=== PATIENT | female | born 1970 | race Caucasian/White ===

== ENCOUNTER 2024-03-09 10:38 | Emergency (ER) | payer OTHER, SELFPAY ==
--- NOTE | ~2024-03-09 | CT_ITS ---
EXAMINATION: CT brain and CT cervical spine without contrast . CLINICAL INDICATION: Fall with head strike. COMPARISON: CT cervical spine 09/20/2021. TECHNIQUE: 5 mm thin thin axial and reformatted 2 mm thin sagittal and coronal images of brain were obtained without contrast. Subsequently axial 3 mm thin and reformatted 2 mm thin sagittal and coronal images of cervical spine were obtained without contrast. DLP 1051. DOSE LOWERING TECHNIQUES: This CT examination was performed using dose optimization techniques as appropriate, variously including the following: - Automated exposure control - Adjustment of mA and/or kV according to patient size (this includes techniques or standardized protocols for targeted exams where dose is matched to indication/reason for exam; i.e. extremities or head) - Use of iterative reconstruction technique FINDINGS: BRAIN: There is no acute intra-axial, extra-axial bleed, masses or midline shift. There is no acute infarction in evolution. There is no edema. The montoya to white matter differentiation is maintained normal. The lateral ventricles are symmetrical in size and configuration without enlargement. Bone windows reveal no calvarial abnormality. There is no scalp soft tissue abnormality. There is mucoperiosteal thickening right sphenoid sinus. Rest of the paranasal sinuses are clear. CERVICAL SPINE: There is mild straightening of cervical lordosis. The vertebral heights and alignment is normal. There is mild loss of C5-6 disc height with ventral and posterior spondylosis. Rest of the disc heights are normal. There is no visible acute fracture, dislocation or lytic process seen. The prevertebral and paravertebral soft tissues are normal. CT/CT cervical spine wo IV con IMPRESSION: No acute intracranial process seen. Mild degenerative disc changes with ventral and posterior spondylosis C5-6 disc level. Electronically signed by: Mark Squires MD 03/09/2024 01:51 PM EST
--- NOTE | ~2024-03-09 | XR_ITS ---
CLINICAL HISTORY: fall, white count ?pneumonia 2 view chest x-ray. Comparison: None Findings: Lungs are clear without acute infiltrates. No pneumothorax. Heart size normal. No acute bony abnormalities. Impression: No acute processes This document has been electronically signed by: Sim Jeffries MD on 03/09/2024 18:26:09
[2024-03-09 10:42] VITALS: BP 109/75; PULSE 80; RESP 16; TEMP 36.6; O2SAT 96; BMI 34.3
--- NOTE | 2024-03-09 11:00 | ECG_ITS ---
Test Reason : CP Blood Pressure : / mmHG Vent. Rate : 083 BPM Atrial Rate : 083 BPM P-R Int : 128 ms QRS Dur : 072 ms QT Int : 360 ms P-R-T Axes : 034 045 032 degrees QTc Int : 423 ms Normal sinus rhythm Normal ECG No previous ECGs available Referred By: Generic ED Physician Electronically Signed By:SERA BARRETT MD
[2024-03-09 11:49] LABS: Basophils Percent Auto 0.2 % (0-2); Eosinophils Percent Auto 0.3 % (0-4); Hematocrit 43.4 % (37.0-47.0); Hemoglobin 14.6 g/dl (12.0-16.0); Imm Gran Abs Auto 0.06 X10*3/uL (0.00-0.03); Imm Gran Pct Auto 0.4 % (0.0-0.4); Lymphocytes Absolute Auto 1.3 X10*3/uL (1.2-4.9); Lymphocytes Percent Auto 9.5 % (20-40); MANUAL DIFF FLAG NO; Mean Corpuscular HGB Conc 33.6 g/dl (31.0-35.0); Mean Corpuscular Hemoglobin 29.6 pg (27.0-33.0); Monocytes Absolute Auto 0.5 X10*3/uL (0.1-1.2); Monocytes Percent Auto 3.4 % (2-11); Neutrophils Absolute Auto 11.5 x10*3/uL (2.0-8.3); Neutrophils Percent Auto 86.2 % (45-73); Platelet Count 365 X10*3/uL (160-400); Red Blood Count 4.93 X10*6/uL (4.20-5.50); Red Cell Distribution Width 12.6 % (11.0-16.0); White Blood Count 13.4 X10*3/uL (4.8-10.8)
[2024-03-09 11:55] LABS: Prothrombin Time 11.8 SEC (10.9-12.4)
[2024-03-09 12:10] LABS: Alanine Aminotransferase 46 U/L (0-31); Albumin Level 4.7 g/dL (3.5-5.0); Alkaline Phosphatase 101 U/L (39-117); Anion Gap 10 (12-20); Aspartate Amino Transferase 33 U/L (5-31); Bilirubin Total 0.6 mg/dL (0.0-1.0); Blood Urea Nitrogen 15 mg/dL (9-16); Calcium 9.8 mg/dL (8.4-10.2); Carbon Dioxide 26 mmol/L (22-29); Chloride 106 mmol/L (96-108); Creatinine Clr Calc Pharmacy 70.5; Estimated Glomerular Filt Rate 56; Glucose Random 151 mg/dL (60-115); Potassium 4.2 mmol/L (3.3-5.1); Sodium 138 mmol/L (135-145); Total Protein 7.7 g/dL (6.5-8.0); Troponin-I High Sensitivity < 2.7 ng/L (<3.5-17.0)
[2024-03-09 12:12] LABS: HCG Quantitative < 2 mIU/mL
[2024-03-09 12:27] LABS: Influenza A PCR NEGATIVE (Negative); Influenza B PCR NEGATIVE (Negative); Resp Syncy Virus RNA Qual PCR NEGATIVE (Negative); SARS COV2 PCR INHOUSE NEGATIVE (Negative)
--- OUTSIDE RECORDS SUMMARY | 2024-03-09 15:22 | XMS_ITS | Continuity of Care Document ---
Author Organization [facility] Address [address] [place] [address] Care Team Providers Care Lab Manager Name Role Phone Ihsan Andrey HAGAN Unavailable Unavailable Procedures Procedure Date Therapeutic Proc 15 Min Therap Exerc Sep Therap Proc(S)-Group Therapeutic Proc 15 Min Therap Exerc Sep Therapeutic Proced 1 Or More Neuromuscul ar Reeduca Modality To One Or More Areas;Hot Or Col d Packs Manual Therapy Techniques One Or More Nina davidson Ea Therapeutic Proc 15 Min Therap Exerc Aug Therapeutic Proc 15 Min Therap Exerc Aug Therapeutic Proced 1 Or More Neuromuscul ar Reeduca Modality To One Or More Areas;Hot Or Col d Packs Therapeutic Proc 15 Min Therap Exerc Aug Therapeutic Proced 1 Or More Neuromuscul ar Reeduca Modality To One Or More Areas;Hot Or Col d Packs Therapeutic Proc 15 Min Therap Exerc Aug Therapeutic Proced 1 Or More Neuromuscul ar Reeduca Appli Of Modality, 1 Or More Ultrasound Therapeutic Proc 15 Min Therap Exerc Aug Therapeutic Proced 1 Or More Neuromuscul ar Reeduca Manual Therapy Techniques One Or More Nina davidson Ea Modality To One Or More Areas;Hot Or Col d Packs Therapeutic Proc 15 Min Therap Exerc Aug Therapeutic Proced 1 Or More Neuromuscul ar Reeduca Appli Of Modality, 1 Or More Ultrasound Modality To One Or More Areas;Hot Or Col d Packs Physical Therapy Evaluation Therapeutic Proc 15 Min Therap Exerc July Modality To One Or More Areas;Hot Or Col d Packs Therapeutic Proc 15 Min Therap Exerc July Therapeutic Proced 1 Or More Neuromuscul ar Reeduca Modality To One Or More Areas;Hot Or Col d Packs Manual Therapy Techniques One Or More Nina davidson Ea Physical Therapy Evaluation Therapeutic Proc 15 Min Therap Exerc July Application Of A Modality, Traction, Mec hanical Therapeutic Proc 15 Min Therap Exerc July Modality To One Or More Areas;Hot Or Col d Packs Therapeutic Proc 15 Min Therap Exerc Jun Therapeutic Proced 1 Or More Neuromuscul ar Reeduca Appli Of Modality, 1 Or More Ultrasound Physical Therapy Evaluation Therapeutic Proc 15 Min Therap Exerc Jun Manual Therapy Techniques One Or More Nina davidson Ea Advance Directives Directive Yes / No Effective Date File Name No Information Encounters Encounter Description Practice Location Reason(s) For Visit Diagnoses Date Provider Providers Copied on Encounter [facility] [id number], [id number], [facility] 1800 LMO neck (chief complaint) back pain (chief complaint) knee pain (chief complaint) No Information 4 Ihsan Panny. [address] [place] [address] [address], [address], [place]. [phone] Referring Provider: Rich Santoro, [address] [facility] [address], [place], [address]. tel:[phone] [facility] [address], [id number], [facility] 1800 LMO neck (chief complaint) back pain (chief complaint) knee pain (chief complaint) No Information 4 Ihsan Panny. [address], [address], [place]. tel:[phone] Referring Provider: Rich Santoro, [address] [facility] [address] [place], [address]. tel:[phone] [facility], [facility] [address], [id number], CBridgette Brantley 1800 L[place] neck (chief complaint) back pain (chief complaint) knee pain (chief complaint) No Information Sep-0 3-201 4 Ihsan Panny. [address], [address], [place]. tel:[phone] Referring Provider: Rich Santoro, [address] [facility] [address] [place], [address]. tel:[phone] [facility], [facility] [address], [id number], CBridgette Brantley 1800 L[place] neck (chief complaint) back pain (chief complaint) knee pain (chief complaint) Cervicalgia Baron-3 0-201 4 Ihsan Panny. [address], [address], [place]. tel:[phone] [facility] [address]253, [place], [place], [id number], [place] CBridgette Karon 1800 LMO neck (chief complaint) back pain (chief complaint) knee pain (chief complaint) No Information Baron-2 7-201 4 Ihsan Panny. [address], [address], [place]. tel:[phone] [facility] [address], [id number], [place] CBridgette CariasKaron 1800 LMO neck (chief complaint) back pain (chief complaint) knee pain (chief complaint) No Information Baron-1 9-201 4 Ihsan Panny. [address], [address], [place]. tel:[phone] [facility] [address], [id number], [place] CBridgette [place] 1800 LMO neck (chief complaint) back pain (chief complaint) knee pain (chief complaint) No Information Baron-1 6-201 4 Ihsan Panny. [address], [address], [place]. tel: [phone] [facility] [address], [id number], [place] C. Karon 1800 LMO neck (chief complaint) back pain (chief complaint) knee pain (chief complaint) No Information 0 9-201 4 Ihsan Panny. [address], [address], [place]. tel: [phone] [facility] [address], [id number], [place] C. [place] 1800 LMO neck (chief complaint) back pain (chief complaint) knee pain (chief complaint) No Information 5-201 4 Ihsan Panny. [address], [address], [place]. tel: [phone] [facility] [address], [id number], CBridgette CariasKaron 1800 LMO neck (chief complaint) back pain (chief complaint) knee pain (chief complaint) Pain in joint involving lower leg 7-201 4 Ihsan Panny. [address], [address], [place]. tel: [phone] Referring Provider: Rich Santoro, [address] [facility] [address], [place], [address]. tel:[phone] [facility] [address], [id number], [place] CBridgette Carias[place] 1800 LMO neck (chief complaint) back pain (chief complaint) No Information 2-201 4 Ihsan Panny. [address], [address], [place]. tel: [phone] [facility] [address], [id number], [place] C. [place] 1800 LMO neck (chief complaint) back pain (chief complaint) No Information 7-201 4 Kellee Olmstead. [address], [address], [place]. tel: [phone] [facility], [facility] [address], [id number], CBridgette Brantley 1800 LMO neck (chief complaint) back pain (chief complaint) Backache 5-201 4 Ihsan Panny. [address], [address], [place]. tel: [phone] [facility], [facility] [address], [id number], CBridgette Brantley 1800 LMO TMJ (chief complaint) No Information 0 8-201 4 Ihsan Panny. [address], [address], [place]. tel:[phone] [facility], [facility] [id number] [place] [address], [id number], CBridgette Brantley 1800 LMO TMJ (chief complaint) No Information 9-201 4 Ihsan Panny. [address], [address], [place]. tel:[phone] Referring Provider: Ken Davila [address], [address]. tel:[phone] [facility], [facility] [id number] [place] [address], [phone], Peyton Brantley 1800 LMO TMJ (chief complaint) Temporomandibular joint disorders, unspecified 7-201 4 Ihsan Panny. [address], [address], [place]. tel:[phone] Referring Provider: Ken Davila [facility] [address], [place], [address]. tel:[phone] Family History Family Member Type Diagnosis Age At Onset No Information Payers Payer name Insurance type Covered democrat ID Miryam barney(s) [facility] CI [id number] 2 Social History Type Description Quantity Date Captured Comments Sex Female Smoking Status No Information Chief Complaint And Reason For Visit From encounter dated '10/02/2013 12:20'. neck (chief complaint) back pain (chief complaint) knee pain (chief complaint) Reason For Referral Reason For Referral No Information History Of Present Illness Encounter Date Complaint History Of Prese nt Illness No Information Functional Status Date Functional Assessmen t No Information Instructions Date Instruction Additional Infor mation No Information Assessments Type Assessment Date No Information Patient Care Teams Name Effective Dates (start - stop) Status Members No Information
[2024-03-09 15:37] VITALS: BP 112/59; PULSE 89; RESP 18; TEMP 36.9; O2SAT 97
[2024-03-09 15:57] LABS: Appearance Urine Cloudy; Color Urine Dark Yellow; Glucose Urine UA Negative (Negative); Leukocyte Esterase Urine Negative (Negative); Nitrite Urine Negative (Negative); Specific Gravity - Urine >= 1.030 (1.005-1.025); Urine Blood Negative (Negative); Urine Ketones Trace mg/dL (Negative); Urine Protein Trace mg/dL (Neg-Trace)
--- NOTE | 2024-03-09 17:55 | ED_ITS ---
unlikely. Transaminitis. beta hcg undetectable. urine does not demonstrate infection. she tested negative for covid, flu, and rsv. her chest xray does not demonstrate pneumonia. ct head/ c spine unremarkable. her BP is soft however orthostatics are negative. > will treat for sinusitis. augmentin sent to pharmacy. advised to stay hydrated/ not skip meals. this may have contributed to her fall this morning. Patient has remained stable throughout ED visit today. Discussed worrisome signs and symptoms and when to return to the ED. All questions answered at this time. Patient is agreeable with disposition and stable for discharge. Medical Decision Making Medical Decision Making [facility] Narrative: 53 year old female with pmhx significant for anxiety and depression presents to the ED today for evaluation s/p syncopal episode this morning. Vital signs are stable. not hypoxic, afebrile. she is nontoxic appearing and in NAD. Exam significant for small palpable hematoma to left forehead along hair line. no palpable skull fracture. no moreira sign. no racoon eyes. tender to percussion of frontal sinus. cerebellum intact. Differential diagnosis includes anemia, electrolyte abnormality, dehydration, hypoglycemia, UTI, pneumonia, arrhythmia, ACS, orthostatic hypotension, rhabdo, viral syndrome, sinusitis. Unlikely pulmonary embolism, seizure, medication SE, ICH, TIA/CVA, cerebellar stroke. Plan for labs, ekg, cxr, ortho vitals, re-evaluation. Differential Diagnosis Differential Diagnoses: The differential diagnosis associated with the presentation includes as above. Admission/Observation Not indicated. Lab Data [facility] Lab Attestation statement: I reviewed the patient's lab results. as above. 03/09/24 11:43 03/09/24 11:43 Labs: Lab Results 03/09/24 03/09/24 03/09/24 Range/Units 11:43 15:49 18:44 WBC 13.4 H (4.8-10.8) X10*3/uL RBC 4.93 (4.20-5.50) X10*6/uL Hgb 14.6 (12.0-16.0) g/dl Hct 43.4 (37.0-47.0) % MCV 88.0 (80.0-98.0) fL MCH 29.6 (27.0-33.0) pg MCHC 33.6 (31.0-35.0) g/dl RDW 12.6 (11.0-16.0) % Plt Count 365 (160-400) X10*3/uL MPV 9.0 L (9.4-12.3) fL Immature Gran % (Auto) 0.4 (0.0-0.4) % Neut % (Auto) 86.2 H (45-73) % Lymph % (Auto) 9.5 L (20-40) % [place] % (Auto) 3.4 (2-11) % Eos % (Auto) 0.3 (0-4) % Baso % (Auto) 0.2 (0-2) % Lymph # (Auto) 1.3 (1.2-4.9) X10*3/uL [place] # (Auto) 0.5 (0.1-1.2) X10*3/uL Eos # (Auto) 0.0 (0.0-0.4) X10*3/uL Baso # (Auto) 0.0 (0.0-0.2) X10*3/uL Abs Immat Gran (auto) 0.06 H (0.00-0.03) X10*3/uL Absolute Neuts (auto) 11.5 H (2.0-8.3) x10*3/uL Absolute Nucleated RBC 0.000 (0.0-0.012) X10*3/uL Nucleated RBC % (auto) 0.0 (0.0-0.2) /100WBC PT 11.8 (10.9-12.4) SEC INR 1.0 (0.9-1.1) Sodium 138 (135-145) mmol/L Potassium 4.2 (3.3-5.1) mmol/L Chloride 106 (96-108) mmol/L Carbon Dioxide 26 (22-29) mmol/L Anion Gap 10 L (12-20) BUN 15 (9-16) mg/dL Creatinine 1.03 (0.5-1.4) mg/dL Estim Creat Clear Calc 70.5 Estimated GFR 56 Random Glucose 151 H (60-115) mg/dL Calcium 9.8 (8.4-10.2) mg/dL Total Bilirubin 0.6 (0.0-1.0) mg/dL AST 33 H (5-31) U/L ALT 46 H (0-31) U/L Alkaline Phosphatase 101 (39-117) U/L Total Creatine Kinase 61 (26-140) U/L Troponin I High Sens < 2.7 < 2.7 (<3.5-17.0) ng/L Total Protein 7.7 (6.5-8.0) g/dL Albumin 4.7 (3.5-5.0) g/dL Beta HCG, Quant < 2 mIU/mL Urine Color Dark Yellow Urine Appearance Cloudy Urine pH 6.0 (5.0-9.0) Ur Specific [place] >= 1.030 H (1.005-1.025) Urine Protein Trace (Neg-Trace) mg/dL Urine Glucose (UA) Negative (Negative) mg/dL Urine Ketones Trace (Negative) mg/dL Urine Blood Negative (Negative) Urine Nitrite Negative (Negative) Ur Leukocyte Esterase Negative (Negative) Influenza Type A (PCR) NEGATIVE (Negative) Influenza Type B (PCR) NEGATIVE (Negative) RSV RNA Qual (PCR) NEGATIVE (Negative) SARS-CoV-2 RNA (RT-PCR) NEGATIVE (Negative) Independent Interpretation I performed an independent interpretation of an: EKG, Plain X-Ray and CT Scan Interpretation: CXR without consolidation or infiltrate EKG showing NSR with a rate of 83 bpm. no acute ischemic changes or st elevations CT head w/o bleed/ skull fracture CT c spine without fracture Radiology Impression Discussion of test interpretation with radiology: I have reviewed the radiologist's reading. Radiologist Impression: EXAMINATION: CT brain and CT cervical spine without contrast . CLINICAL INDICATION: Fall with head strike. COMPARISON: CT cervical spine 09/20/2021. TECHNIQUE: 5 mm thin thin axial and reformatted 2 mm thin sagittal and coronal images of brain were obtained without contrast. Subsequently axial 3 mm thin and reformatted 2 mm thin sagittal and coronal images of cervical spine were obtained without contrast. DLP 1051. DOSE LOWERING TECHNIQUES: This CT examination was performed using dose optimization techniques as appropriate, variously including the following: - Automated exposure control - Adjustment of mA and/or kV according to patient size (this includes techniques or standardized protocols for targeted exams where dose is matched to indication/reason for exam; i.e. extremities or head) - Use of iterative reconstruction technique FINDINGS: BRAIN: There is no acute intra-axial, extra-axial bleed, masses or midline shift. There is no acute infarction in evolution. There is no edema. The montoya to white matter differentiation is maintained normal. The lateral ventricles are symmetrical in size and configuration without enlargement. Bone windows reveal no calvarial abnormality. There is no scalp soft tissue abnormality. There is mucoperiosteal thickening right sphenoid sinus. Rest of the paranasal sinuses are clear. CERVICAL SPINE: There is mild straightening of cervical lordosis. The vertebral heights and alignment is normal. There is mild loss of C5-6 disc height with ventral and posterior spondylosis. Rest of the disc heights are normal. There is no visible acute fracture, dislocation or lytic process seen. The prevertebral and paravertebral soft tissues are normal. CT/CT head/brain wo IV con IMPRESSION: No acute intracranial process seen. Mild degenerative disc changes with ventral and posterior spondylosis C5-6 disc level. Electronically signed by: Mark Squires MD 03/09/2024 01:51 PM [facility] Ordering Physician: Yudith Fuchs Date of Service: 03/09/24 Procedure(s): XR chest 2V Accession Number(s): [id number] cc: HARRY HARP ; Yudith Fuchs~ CLINICAL HISTORY: fall, white count ?pneumonia 2 view chest x-ray. Comparison: None Findings: Lungs are clear without acute infiltrates. No pneumothorax. Heart size normal. No acute bony abnormalities. Impression: No acute processes This document has been electronically signed by: Sim Jeffries MD on 03/09/2024 18:26:09 External Record Review External record reviewed: Inpatient record Prescription Management I considered prescription management with: Antibiotic (augmentin) Social Determinants Patient?s care significantly limited by Social Determinants of Health including: Other Social Determinant of Health Critical Care Time Critical Care Time Critical Care Time: No Discharge Plan Discharge Clinical Impression: Sinusitis, Closed head injury Patient Disposition: Home, Self-Care Instructions: Sinusitis (ED) Additional Instructions: Your workup today is reassuring. The CT scan of your head and neck is normal. The EKG of your heart is normal. Your chest x-ray is normal. Encourage you to stay hydrated. Do not skip meals. I have sent an antibiotic (Augmentin) to your pharmacy for sinus infection. On Augmentin, softer bowel movements are to be expected. Call your provider if you move your bowels more than 4 times a day, your bowel movements are almost all liquid, or you get a rash.? Follow up with PCP. Return with new or worsening symptoms. In the case of an emergency call 911. Prescriptions: New amoxicillin-pot clavulanate 875-125 mg tablet 1 tab PO BID 7 Days Qty: 14 0RF Stand Alone Forms: Work/School Release Discharge Date/Time: 03/09/24 20:48 Print Language: Serbian HPI - General Adult General Chief complaint: Head Injury Stated complaint: Fell - hit head Time Seen by Provider: 03/09/24 17:24 Source: patient Mode of arrival: ambulatory Limitations: no limitations History of Present Illness ED Provider: YUDITH FUCHS PA-C HPI narrative: 53 year old female with pmhx significant for anxiety and depression presents to the ED today for evaluation s/p syncopal episode this morning. She states that she was shaving her legs after stepping into the shower a few minutes prior when she began to feel foggy . Denies room spinning sensation. She then fell to the ground however does not recall if she lost consciousness. Reports head strike on the wall. She then stood up and immediately fell again. She was able to stand back up and ambulate out of the bathroom. Denies feeling confused after the fall. She reports history of similar with vertigo attacks however states this felt somewhat different. At present she endorses slight headache where she hit her head. No other concerns. Not on anticoagulation. Admits she has not eaten much since yesterday. She has been trying to stay hydrated. Endorses recent URI with nasal congestion with yellow/brown discharge and frontal sinus pain. Denies fever, chills, chest pain, cough, sob, hemoptysis, calf pain, N/V/D. No recent travel/ long car rides. No hormonal therapy. No new medications. Related Data Previous Rx's ?Medication ?Instructions ?Recorded amoxicillin 875 mg-potassium 1 tab PO BID 7 days #14 tabs 03/09/24 clavulanate 125 mg tablet Allergies Allergy/AdvReac Type Severity Reaction Status Date / Time erythromycin base Allergy Difficulty Verified 03/09/24 10:44 Breathing Review of Systems 2 Review of Systems: Yes all other systems are reviewed and are negative [facility] Past Medical History Attestation statement: The following information was validated with the patient. Source: old records reviewed and nursing notes reviewed Social History Social History Advance Directives: No Advance Directives Information Provided: No Physical Exam ED Vital Signs: Vital Signs - 24 hr 03/09/24 15:37 03/09/24 18:55 03/09/24 18:55 Temperature 98.4 F Pulse Rate 89 70 77 Respiratory Rate 18 Blood Pressure 112/59 L 102/54 L 113/67 Pulse Oximetry 97 Oxygen Delivery Method Room Air 03/09/24 18:57 03/09/24 18:57 Temperature 97.8 F Pulse Rate 96 83 Respiratory Rate 18 Blood Pressure 105/72 105/72 Pulse Oximetry 96 Oxygen Delivery Method Room Air BMI result Body Mass Index 34.3 vital signs stable General: Well appearing, in no acute distress. Skin: Warm, dry, intact. No rashes or lesions. Head: Normocephalic, atraumatic. +small palpable hematoma to left forehead along hair line. no palpable skull fracture. no moreira sign. no racoon eyes. EENT: Hearing is intact b/l. Conjunctiva clear. PERRLA. EOM intact. Moist mucous membranes.?no tongue bite. +tender to percussion of frontal sinus Neck: Supple without LAD Cardiac: Chest wall symmetric. RRR Lungs: Normal respiratory effort without accessory muscle use. CTA bilaterally Abdomen: Soft, non-tender, non-distended Back: No midline spinous or paraspinal tenderness. No step off deformity. Ext: Upper and lower extremities atraumatic, without tenderness, deformity, swelling or erythema. Full ROM throughout. Neuro: AOx3. Normal speech. Ambulating with steady gait. normal finger to nose, heel to leyva. Psych: Appropriate mood and affect. Responds appropriately to questions. Course Course Course Narrative: CBC with leukocytosis to 13.4 with left shift. No anemia. H&H stable. Chemistry without acute electrolyte abnormality requiring intervention. Random glucose 151. Hypoglycemic episode unlikely. Initial troponin undetectable. delta trop flat. ekg with NSR, no acute ischemic changes or ST elevations. ACS
[2024-03-09 18:55] VITALS: BP 102/54; BP 113/67; PULSE 70; PULSE 77
[2024-03-09 18:57] VITALS: BP 105/72; PULSE 83; PULSE 96; RESP 18; TEMP 36.6; O2SAT 96
[2024-03-09 19:28] LABS: Troponin-I High Sensitivity < 2.7 ng/L (<3.5-17.0)
== END 2024-03-09 20:48 | disposition home or self-care (01) ==
PROVIDERS: Physician Assistant Medical; Registered Nurse Emergency; Emergency Provider Emergency Medicine; PCP Nurse Practitioner Family
DX: S09.90XA Unspecified injury of head, initial encounter (principal); J32.9 Chronic sinusitis, unspecified; R51.9 Headache, unspecified; R07.89 Other chest pain; M54.2 Cervicalgia; Z79.899 Other long term (current) drug therapy; W18.2XXA Fall in (into) shower or empty bathtub, initial encounter; Y93.E1 Activity, personal bathing and showering; Y92.091 Bathroom in other non-institutional residence as the place of occurrence of the external cause; Y99.8 Other external cause status; Z51.81 Encounter for therapeutic drug level monitoring; R10.2 Pelvic and perineal pain; Z03.818 Encounter for observation for suspected exposure to other biological agents ruled out
CPT/HCPCS: 0241U; 36415; 70450; 71046; 72125; 80053; 81003; 82550; 84484; 84702; 85025; 85610; 93005; 99283; 99284

== ENCOUNTER → 2024-03-09 11:00 | Outpatient (BNV) | payer SELFPAY | PROVIDERS: Visit Provider Internal Medicine Cardiovascular Disease | DX: R07.9 Chest pain, unspecified (principal) | CPT/HCPCS: 93010 ==

== ENCOUNTER → 2024-03-09 11:04 | Outpatient (BNV) | payer SELFPAY | PROVIDERS: Visit Provider Radiology Diagnostic Radiology | DX: R55 Syncope and collapse (principal); M50.322 Other cervical disc degeneration at C5-C6 level | CPT/HCPCS: 70450; 71046; 72125 ==